=== PATIENT | female | born 1980 | race Caucasian/White ===

== ENCOUNTER 2017-03-05 13:45 | Emergency (ER) | payer OTHER ==
[2017-03-05 15:14] LABS: HEMOGLOBIN 14.7 gm/dl (12.3-15.3); RED BLOOD COUNT 4.7 M/UL (4.00-5.10); WHITE BLOOD COUNT 3.8 K/UL (4.5-11.0)
[2017-03-05 15:32] LABS: BUN/CREATININE RATIO 11 (0-10)
== END 2017-03-05 18:45 | disposition home or self-care (01) ==
LOC: EDBD 13:45 → ER1 13:45
PROVIDERS: Emergency Medicine
DX: R51 Headache (principal)
CPT/HCPCS: 36415; 70450; 71020; 72125; 80053; 81001; 83605; 83690; 84703; 85025; 87086; 96360; 99284; G0480; J7030